=== PATIENT | female | born 1940 | race Caucasian/White ===

== ENCOUNTER 2019-02-05 22:37 | Inpatient (IN) | payer MEDICARE, OTHER ==
[~2019-02-05] VITALS: Ht 154.9 cm; Wt 72.6 kg
[2019-02-05] MEDS ORDERED: HYDROCODON-ACE1 EA10 PO (22:45)
[2019-02-05] MEDS ORDERED: PERCOCET 10-321 EAC1 PO (22:46)
[2019-02-05] MEDS ORDERED: ASPIRIN EC325 M1 PO (22:46)
[2019-02-05] MEDS ORDERED: RESTORIL15 MG PO (22:46)
[2019-02-05] MEDS ORDERED: LANTUS (22:47)
[2019-02-05] MEDS ORDERED: GLUCOPHAGE1000 MG PO (22:47)
[2019-02-05] MEDS ORDERED: LISINOPRIL40 MG PO (22:47)
[2019-02-05] MEDS ORDERED: JANUVIA100 MG PO (22:47)
[2019-02-05] MEDS ORDERED: CYCLOBENZAPRINE10 MG PO (22:47)
[2019-02-05] MEDS ORDERED: TOPROL XL25 MG PO (22:48)
[2019-02-05] MEDS ORDERED: CELEBREX200 MG PO (22:48)
[2019-02-05] MEDS ORDERED: MACROBID100 MG PO (22:48)
[2019-02-05] MEDS ORDERED: ALENDRONAT70 MG/75 M PO (22:49)
[2019-02-05] MEDS ORDERED: VOLTAREN100 GM TOPICAL (22:49)
[2019-02-05] MEDS ORDERED: TIGAN300 MG PO (22:49)
[2019-02-05] MEDS ORDERED: HCTZ25 MG PO (22:50)
--- NOTE | 2019-02-05 23:00 | NUR ---
PT UP TO BATHROOM VIA WHEELCHAIR. PT HAD LARGE BROWN LOOSE BM. PT UNABLE TO URINATE IN CUP FOR SAMPLE
[2019-02-05 23:22] LABS: CALC OSMOLALITY 285 mosm/kg (275-300); CARBON DIOXIDE 19.6 mmol/L (21.0-32.0); CHLORIDE - SERUM 98 mmol/L (98-107); CREATININE - SERUM 1.4 mg/dL (0.6-1.3); GLUCOSE 307 mg/dL (74-106); POTASSIUM - SERUM 4.8 mmol/L (3.5-5.1); SODIUM 132 mmol/L (136-145); UREA NITROGEN 37 mg/dL (7-18); eGFR NON AFRICAN AMERICAN 38 mL/min (90-120)
[2019-02-05 23:24] LABS: HEMATOCRIT 39.9 % (36.0-48.0); MCHC 32.6 g/dL (31.0-37.0); MCV 91.9 fL (80.0-100.0); MEAN PLATELET VOLUME 10.1 fL (7.4-10.4); PLATELET COUNT 399 10x3/uL (130-400); RBC 4.34 10x6/uL (4.00-5.40); RDW 14.6 % (11.5-14.5)
--- NOTE | 2019-02-05 23:30 | NUR ---
STOOL SENT TO LAB
[2019-02-05 23:31] LABS: ALBUMIN 2.8 g/dL (3.4-5.0); ALKALINE PHOSPHATASE 198 U/L (46-116); ALT (SGPT) 23 U/L (10-68); AMYLASE - SERUM 35 U/L (25-115); BILIRUBIN - TOTAL 1.11 mg/dL (0.2-1.3); LIPASE 59 U/L (73-393); PROTEIN - SERUM 5.7 g/dL (6.4-8.2)
[2019-02-05 23:32] LABS: TROPONIN-I < 0.017 ng/mL (0.000-0.060)
[2019-02-05 23:53] LABS: EOSINOPHILS 1 % (0-7); LYMPHOCYTES 5 % (15-50); MONOCYTES 12 % (2-11); NEUTROPHILS 74 % (40-80); PLATELET ESTIMATE NORMAL; PLATELET MORPHOLOGY GIANT PLTS PRESENT
--- NOTE | 2019-02-06 | NUR ---
PT SON BROUGHT PT HOME SCD AND ROM DEVICE BROUGHT FROM HOME TO USE WHILE IN HOSPITAL. PT WEARING SCD AT THIS TIME.
--- NOTE | 2019-02-06 00:30 | NUR ---
ADMIT FROM ER TO 2111 VIA STRETCHER PT TO BED AND SAFTY AND COMFORT SECURED PT HAS HAD RECENT KNEE REPLACEMENT TO RIGHT SIDE
--- NOTE | 2019-02-06 01:13 | NUR ---
ATTEMPTED TO CONTACT ATTENDING PHYSITION ABOUT LACTIC ACID WITH NO CALL BACK PT IS NOT IN DISTRESS
[2019-02-06 01:49] VITALS: BP 106/52; BMI 30.3
[2019-02-06 04:00] VITALS: BP 129/61
--- NOTE | 2019-02-06 07:20 | NUR ---
RECIEVE REPORT. RESTING IN BED WITH EYES CLOSED. HOME SCDs ON. RESPIRATIONS EVEN AND REGULAR. CONTINUE PLAN OF CARE AND SAFETY PRECAUTIONS.
[2019-02-06 08:55] VITALS: BP 120/57
[2019-02-06 11:51] VITALS: BP 116/59
[2019-02-06 12:36] LABS: APPEARANCE CLEAR (CLEAR); BILIRUBIN NEGATIVE (NEGATIVE); COLOR DK YELLOW (YELLOW); GLUCOSE NEGATIVE (NEGATIVE); KETONE NEGATIVE (NEGATIVE); NITRITE NEGATIVE (NEGATIVE); PROTEIN 1+ mg/dL (NEGATIVE); UROBILINOGEN NORMAL (NORMAL)
--- NOTE | 2019-02-06 13:17 | NUR ---
Rehab Note- Acute Inpatient Rehab prescreen order received. The patient has a pending PT Eval, will await & see her physical mobility as she had a recent knee replacement. Will continue to follow at this time. Thank you for thus referral! Siria Mora RN Clinical Liaison, [facility] Rehab
[2019-02-06 16:40] VITALS: BP 109/52
--- NOTE | 2019-02-06 17:17 | NUR ---
ALERT AND ORIENTED X4. SITTING UP IN BED. FAMILY AT BEDSIDE. CONTINUOUS MOTION DEVISE ON RT LEG. SCDs ON. CONTINUE PAIN MANAGEMENT ORDERED. CONTINUE PLAN OF CARE AND SAFETY PRECAUTIONS.
--- NOTE | 2019-02-06 19:15 | NUR ---
AWAKE AND ALERT WITH CPU FROM HOME IN PLACE PT WEARING HER OWN SCD AND PT HAS GOTTEN UP FROY BEEN TOLD PT DENIES NEEDS AT THIS TIME BED IS LOW AND LOCKED CALL LIGHT IS WITH PT SKIN WARM AND DRY AND LCTA I INFORMED PT WE STILL NEED A STOOL SAMPLE
[2019-02-06 20:00] VITALS: BP 105/46
[2019-02-07 00:28] VITALS: BP 101/45
--- NOTE | 2019-02-07 03:30 | NUR ---
I have reviewed this patient and I concur with the Shift Assessment completed by the Licensed Practical Nurse today this shift.
[2019-02-07 04:22] LABS: ANION GAP 9.4 mmol/L (8-16); CALCIUM 8.1 mg/dL (8.5-10.1)
[2019-02-07 04:29] LABS: CREATININE - SERUM 0.8 mg/dL (0.6-1.3); POTASSIUM - SERUM 3.4 mmol/L (3.5-5.1)
[2019-02-07 04:30] VITALS: BP 101/50
--- NOTE | 2019-02-07 07:20 | NUR ---
RECIEVE REPORT. RESTING IN BED WITH EYES CLOSED. RESPIRATIONS EVEN AND REGULAR. NO SIGNS OF DISTRESS. CONTINUE PLAN OF CARE AND SAFETY PRECAUTIONS.
[2019-02-07 07:53] LABS: BASOPHILS 0.1 % (0-2); EOSINOPHILS 2.7 % (0-7); IMMATURE GRANULOCYTES 0.3 % (0-5); LYMPHOCYTES 9.7 % (15-50); MCH 29.4 pg (26.0-34.0); MCHC 32.5 g/dL (31.0-37.0); MCV 90.5 fL (80.0-100.0); MEAN PLATELET VOLUME 9.1 fL (7.4-10.4); MONOCYTES 16.9 % (2-11); NEUTROPHILS 70.3 % (40-80)
[2019-02-07 07:55] LABS: HEMATOCRIT 26.8 % (36.0-48.0); HEMOGLOBIN 8.7 g/dL (12-16); PLATELET COUNT 245 10x3/uL (130-400); RBC 2.96 10x6/uL (4.00-5.40); WBC 7.1 10x3/uL (4.8-10.8)
[2019-02-07 10:27] VITALS: BP 113/55
--- NOTE | 2019-02-07 13:03 | MORECARE ---
CASE MANAGEMENT DISCHARGE SUMMARY PATIENT: VEL SIFUENTES UNIT: [id number] ADM DATE: 02/06/19 AGE: 78 : 38 SEX: F ROOM/BED: D.[facility] AUTHOR: JAYLA,DOC PHYSICIAN: REFERRING PHYSICIAN: ORLANDO REYES MD DATE OF SERVICE: 02/07/19 Discharge Plan Patient Name: VEL SIFUENTES Facility: [facility]:[place] : 1940 Planned Disposition: Outpatient clinics\services (Programs) Anticipated Discharge Date: 02/07/19 Discharge Date: Expected LOS: 1 Initial Reviewer: [email or web address] Initial Review Date: 02/07/2019 Generated: 02/07/19 2:02 pm DCPIA - Discharge Planning Initial Assessment Updated by [email or web address]: Mars Restrepo on 02/07/19 1:02 pm * Is the patient Alert and Oriented? Yes * How many steps to enter\exit or inside your home? RAMP * PCP DR. COTTON * Pharmacy [facility] [address] * Preadmission Environment Home Alone * ADLs Independent * Equipment Hospital Bed Other Walker * Other Equipment CPM AND ICD'S FOR KNEE REPLACEMENT NO MEDICAL EQUIPMENT PROVIDER PREFERENCE * List name and contact numbers for known caregivers / representatives who currently or will assist patient after discharge: PH[place]EN[place] SIFUENTES, SON, * Verbal permission to speak to the caregivers and representatives has been obtained from the patient. N/A * Community resources currently utilized Other * Please name any agencies selected above. OUTPATIENT PHSYICAL THERAPY SET UP WITH [facility] ON [address] TO BEGIN 02-08-19, ARRANGED BY [facility] POST KNEE REPLACEMENT SURGERY. * Additional services required to return to the preadmission environment? No * Can the patient safely return to the preadmission environment? Yes * Has this patient been hospitalized within the prior 30 days at any hospital? No Coverage Notice Reviewer: [id number] - Mars Restrepo Notice Issued Date-Time: 02/07/2019 12:15 Notice Type: IM Discharge Notice Notice Delivered To: Patient Relationship to Patient: Brake Coupler Dinkey Name: Delivery Method: HAND - Hand Delivered Aleta Days: Prior Verbal Notification: Recipient Understood Notice: Yes Recipient Signature: Yes Med Rec Note Co-signed by Attending: Coverage Notice Comment: Patient Name: VEL SIFUENTES Page [phone] at 1303 All edits/amendments must be made on the electronic document DICTATION DATE: 02/07/19 1302 STRATEGIC ANALYST: YAMILE 02/07/19 1302 RPT#: [id number] DC DATE: STATUS: ADM IN [facility] [address] [place] [address] END OF REPORT
--- NOTE | 2019-02-07 13:09 | MORECARE ---
CASE MANAGEMENT DISCHARGE SUMMARY PATIENT: VEL SIFUENTES UNIT: [id number] ADM DATE: 02/06/19 AGE: 78 : 38 SEX: F ROOM/BED: D.9836 AUTHOR: JAYLADOC PHYSICIAN: REFERRING PHYSICIAN: ORLANDO REYES MD DATE OF SERVICE: 02/07/19 Discharge Plan Patient Name: VEL SIFUENTES Facility: [facility]:[place] : 1940 Planned Disposition: Outpatient clinics\services (Programs) Anticipated Discharge Date: 02/07/19 Discharge Date: Expected LOS: 1 Initial Reviewer: [email or web address] Initial Review Date: 02/07/2019 Generated: 02/07/19 2:09 pm Comments DCP- Discharge Planning Updated by [email or web address]: Mars Restrepo on 02/07/19 12:[address] Patient Name: VEL SIFUENTES Admission Status: ER Accout number: [id number] Admission Date: 02-06-2019 : 1940 Admission Diagnosis: Attending: ORLANDO REYES Current LOS: 1 Anticipated DC Date: 02-07-2019 Planned Disposition: Outpatient clinics\services (Programs) Primary Insurance: MEDICARE A & B Discharge Planning Comments: CM RECEIVED ORDER FOR INPATIENT REHAB PRESCREENING. CM MET WITH PT IN ROOM TO DISCUSS DISCHARGE PLANNING AND NEEDS. PT REPORTS LIVING AT HOME INDEPENDENTLY AND ALONE, PT HAS ONE SON THAT LIVES 5 MILES AWAY AND ANOTHER THAT LIVES 15 MILES AWAY. PT REPORTS SHE WILL HAVE FAMILY CHECKING ON HER ALL THROUGH THE DAY AT HOME. PT HAS HOSPIOTAL BED AND WALKER, ICD'S AND CPM POST KNEE REPLACEMENT. PT HAS NO MEDICAL EQUIPMENT PROVIDER PREFERENCE. PT HAS NO OUTSIDE SERVICES ASSISTING IN THE HOME. CM DISCUSSED AVAILABILITY OF HOME HEALTH, REHAB SERVICES AND MEDICAL EQUIPMENT. PT DENIES DISCHARGE NEEDS, REPORTS HER SON WILL PICK HER UP FOR DISCHARGE HOME. PT STATES SHE PLANS TO GO TO HER OUTPATIENT PHSYICAL THERAPY THAT WAS SET UP WITH [facility] ON [address] TO BEGIN 02-08-19, IT WAS ARRANGED BY [facility] POST KNEE REPLACEMENT SURGERY. PT REPORTS FAMILY WILL ASSIST WITH TRANSPORTATION. IMPORTANT MESSAGE FROM MEDICARE PROVIDED AND EXPLAINED. PT DECLINES INPAITENT REHAB SERVICES, REPORTS HAVING OUTPATIENT PHYSICAL THERAPY ARRANGED AND PT WANTS TO GO HOME ALONE WITH FAMILY ASSISTANCE. CM TO CONTINUE TO FOLLOW AND ASSIST IF NEEDED. . Wedger And Gluer: Mars Restrepo DCPIA - Discharge Planning Initial Assessment Updated by [id number]: Mars Restrepo on 02/07/19 1:02 pm * Is the patient Alert and Oriented? Yes * How many steps to enter\exit or inside your home? RAMP * PCP DR. COTTON * Pharmacy [facility] [address] * Preadmission Environment Home Alone * ADLs Independent * Equipment Hospital Bed Other Walker * Other Equipment CPM AND ICD'S FOR KNEE REPLACEMENT NO MEDICAL EQUIPMENT PROVIDER PREFERENCE * List name and contact numbers for known caregivers / representatives who currently or will assist patient after discharge: PHOEINX SIFUENTES, SON, * Verbal permission to speak to the caregivers and representatives has been obtained from the patient. N/A * Community resources currently utilized Other * Please name any agencies selected above. [facility] [address] TO [facility]GIN 02-08-19, ARRANGED BY [facility] POST KNEE REPLACEMENT SURGERY. * Additional services required to return to the preadmission environment? No * Can the patient safely return to the preadmission environment? Yes * Has this patient been hospitalized within the prior 30 days at any hospital? No Coverage Notice Reviewer: [id number] - Mars Restrepo Notice Issued Date-Time: 02/07/2019 12:15 Notice Type: IM Discharge Notice Notice Delivered To: Patient Relationship to Patient: Wellness Program Coordinator Name: Delivery Method: HAND - Hand Delivered Aleta Days: Prior Verbal Notification: Recipient Understood Notice: Yes Recipient Signature: Yes Med Rec Note Co-signed by Attending: Coverage Notice Comment: Last DP export: 02/07/19 12:03 p Patient Name: VEL SIFUENTES Page [phone] at 1309 All edits/amendments must be made on the electronic document DICTATION DATE: 02/07/19 1309 FLAME ANNEALING MACHINE SETTER: YAMILE 02/07/19 1309 RPT#: [id number] DC DATE: STATUS: ADM IN [facility] [address] [place] [address] END OF REPORT
[2019-02-07 13:10] VITALS: BP 109/43
[2019-02-07 17:00] VITALS: BP 108/54
--- NOTE | 2019-02-07 19:01 | NUR ---
RESTING WITH EYES CLOSED BED LOW AND LOCKED PT HAS OWN SCD AND CPU IN PLACE CALL LIGHT IS WITH PT
[2019-02-07 20:00] VITALS: BP 111/51
[2019-02-08] VITALS: BP 113/55
--- NOTE | 2019-02-08 02:09 | NUR ---
I have reviewed this patient and I concur with the Shift Assessment completed by the Licensed Practical Nurse today this shift.
[2019-02-08 04:00] VITALS: BP 108/54
[2019-02-08 06:19] LABS: BASOPHILS 0.3 % (0-2); HEMATOCRIT 26.9 % (36.0-48.0); HEMOGLOBIN 8.6 g/dL (12-16); IMMATURE GRANULOCYTES 0.7 % (0-5); LYMPHOCYTES 11.5 % (15-50); MCH 29.2 pg (26.0-34.0); MCV 91.2 fL (80.0-100.0); MEAN PLATELET VOLUME 9.6 fL (7.4-10.4); MONOCYTES 13.1 % (2-11); NEUTROPHILS 69.4 % (40-80); PLATELET COUNT 276 10x3/uL (130-400); RBC 2.95 10x6/uL (4.00-5.40); RDW 14.8 % (11.5-14.5)
[2019-02-08 06:35] LABS: ANION GAP 12.1 mmol/L (8-16); CALCIUM 8.4 mg/dL (8.5-10.1); CARBON DIOXIDE 24.1 mmol/L (21.0-32.0); CREATININE - SERUM 0.8 mg/dL (0.6-1.3); POTASSIUM - SERUM 3.2 mmol/L (3.5-5.1)
[2019-02-08 06:46] LABS: WBC 9.5 10x3/uL (4.8-10.8)
--- NOTE | 2019-02-08 07:20 | NUR ---
RECIEVE REPORT. ALERT AND ORIENTED X4. SITTING UP IN BED. RESPIRATIONS EVEN AND REGULAR. DENIES ANY NEEDS. CONTINUE PLAN OF CARE AND SAFETY PRECAUTIONS.
[2019-02-08 10:57] VITALS: BP 122/63
[2019-02-08 12:00] VITALS: BP 116/47
[2019-02-08 14:36] LABS: % SATURATION 7 % (15-55); IRON 10 ug/dl (35-150); TOTAL IRON BIND CAPACITY 128 ug/dl (260-445); UNSAT IRON BIND CAPACITY 118 ug/dl (150-375)
[2019-02-08 18:32] VITALS: BP 122/61
--- NOTE | 2019-02-08 19:25 | NUR ---
EASILY AROUSED AT THIS TIME AND NEEDS SEEN TO BED IS LOW AND LOCKED SRX2 PT HAS OWN SCD ON AT THIS TIME CALL LIGHT IS IN REACH
[2019-02-08 20:00] VITALS: BP 121/59
--- NOTE | 2019-02-09 00:06 | NUR ---
PT ADMITS TO LITTLE PAIN BUT REQUEST THE RTR HYDRO ANYWAY
[2019-02-09 00:27] VITALS: BP 158/59
--- NOTE | 2019-02-09 04:19 | NUR ---
I have reviewed this patient and I concur with the Shift Assessment completed by the Licensed Practical Nurse today this shift.
[2019-02-09 04:30] VITALS: BP 115/59
[2019-02-09 05:30] LABS: BASOPHILS 0.7 % (0-2); EOSINOPHILS 3.2 % (0-7); HEMATOCRIT 27.3 % (36.0-48.0); HEMOGLOBIN 8.7 g/dL (12-16); IMMATURE GRANULOCYTES 5.6 % (0-5); LYMPHOCYTES 10.8 % (15-50); MCH 29.2 pg (26.0-34.0); MCHC 31.9 g/dL (31.0-37.0); MCV 91.6 fL (80.0-100.0); MEAN PLATELET VOLUME 8.8 fL (7.4-10.4); MONOCYTES 11.3 % (2-11); NEUTROPHILS 68.4 % (40-80); PLATELET COUNT 297 10x3/uL (130-400); RBC 2.98 10x6/uL (4.00-5.40); RDW 15.1 % (11.5-14.5); WBC 8.6 10x3/uL (4.8-10.8)
[2019-02-09 05:54] LABS: ANION GAP 11.2 mmol/L (8-16); CALCIUM 9.1 mg/dL (8.5-10.1); CARBON DIOXIDE 24.2 mmol/L (21.0-32.0); CREATININE - SERUM 0.8 mg/dL (0.6-1.3); POTASSIUM - SERUM 3.4 mmol/L (3.5-5.1)
[2019-02-09 08:32] VITALS: BP 125/65
--- NOTE | 2019-02-09 09:25 | NUR ---
PT UP WALKING WITH WALKER WITH P.T.
[2019-02-09 11:51] VITALS: BP 128/59
[2019-02-09 11:55] VITALS: Ht 154.9 cm; Wt 72.6 kg
[2019-02-09] MEDS ORDERED: FLAGYL500 MG PO (14:59)
[2019-02-09] MEDS ORDERED: LEVAQUIN750 MG PO (15:00)
--- NOTE | 2019-02-09 15:56 | NUR ---
CALLED DR COTTON OFFICE AT 1551 AND HAD TO LEAVE MESSAGE FOR CALL BACK FOLLOW UP APPT. AWAITING CALL BACK TO FINISH DISCHARGE.
--- NOTE | 2019-02-09 16:06 | NUR ---
CALLED AGAIN TO DR COTTON OFFICE. HAD TO LEAVE ANOTHER VOICEMAIL. AWAITING CALL BACK.
--- NOTE | 2019-02-09 16:08 | NUR ---
YOUNG FROM DR COTTON OFFICE TO CALL BACK WITH APPT. TIME. DISCHARGE PAPERWORK FINISHIED
--- NOTE | 2019-02-09 16:46 | NUR ---
RIGHT FA 20G IV INSERTED ON SECOND ATTEMPT.
--- NOTE | 2019-02-09 17:20 | NUR ---
PT SON CALLED HER ROOM AND PT STATED SHE IS DISCHARGED AND NEEDS A RIDE HOME. PT'S SON STATES HE WOULD COME GET HER.
--- NOTE | 2019-02-09 18:02 | NUR ---
right fa 20g iv dc'd with cath intact. pt has no telemetry. discharge papers given to pt and teaching done. pt has no further questions. discharge papers signed.
--- NOTE | 2019-02-10 08:09 | MORECARE ---
CASE MANAGEMENT DISCHARGE SUMMARY PATIENT: VEL SIFUENTES UNIT: [id number] ADM DATE: 02/06/19 AGE: 78 : 38 SEX: F ROOM/BED: D.8133 AUTHOR: JAYLADOC PHYSICIAN: REFERRING PHYSICIAN: ORLANDO REYES MD DATE OF SERVICE: 02/10/19 Discharge Plan Patient Name: VEL SIFUENTES Facility: [facility]:[place] : 1940 Planned Disposition: Outpatient clinics\services (Programs) Anticipated Discharge Date: 02/09/19 Discharge Date: 02/09/2019 Expected LOS: 3 Initial Reviewer: [email or web address] Initial Review Date: 02/07/2019 Generated: 02/10/19 9:09 am DCP- Discharge Planning Updated by [email or web address]: Mars Restrepo on 02/07/19 12:[address] Patient Name: VEL SIFUENTES Admission Status: ER Accout number: [id number] Admission Date: 02-06-2019 : 1940 Admission Diagnosis: Attending: ORLANDO REYES Current LOS: 1 Anticipated DC Date: 02-07-2019 Planned Disposition: Outpatient clinics\services (Programs) Primary Insurance: MEDICARE A & B Discharge Planning Comments: CM RECEIVED ORDER FOR INPATIENT REHAB PRESCREENING. CM MET WITH PT IN ROOM TO DISCUSS DISCHARGE PLANNING AND NEEDS. PT REPORTS LIVING AT HOME INDEPENDENTLY AND ALONE, PT HAS ONE SON THAT LIVES 5 MILES AWAY AND ANOTHER THAT LIVES 15 MILES AWAY. PT REPORTS SHE WILL HAVE FAMILY CHECKING ON HER ALL THROUGH THE DAY AT HOME. PT HAS HOSPIOTAL BED AND WALKER, ICD'S AND CPM POST KNEE REPLACEMENT. PT HAS NO MEDICAL EQUIPMENT PROVIDER PREFERENCE. PT HAS NO OUTSIDE SERVICES ASSISTING IN THE HOME. CM DISCUSSED AVAILABILITY OF HOME HEALTH, REHAB SERVICES AND MEDICAL EQUIPMENT. PT DENIES DISCHARGE NEEDS, REPORTS HER SON WILL PICK HER UP FOR DISCHARGE HOME. PT STATES SHE PLANS TO GO TO HER OUTPATIENT PHSYICAL THERAPY THAT WAS SET UP WITH [facility] ON [address] TO BEGIN 02-08-19, IT WAS ARRANGED BY [facility] POST KNEE REPLACEMENT SURGERY. PT REPORTS FAMILY WILL ASSIST WITH TRANSPORTATION. IMPORTANT MESSAGE FROM MEDICARE PROVIDED AND EXPLAINED. PT DECLINES INPAITENT REHAB SERVICES, REPORTS HAVING OUTPATIENT PHYSICAL THERAPY ARRANGED AND PT WANTS TO GO HOME ALONE WITH FAMILY ASSISTANCE. CM TO CONTINUE TO FOLLOW AND ASSIST IF NEEDED. . Records Management Analyst: Mars Restrepo DCPIA - Discharge Planning Initial Assessment Updated by [email or web address]: Mars Restrepo on 02/07/19 1:02 pm * Is the patient Alert and Oriented? Yes * How many steps to enter\exit or inside your home? RAMP * PCP DR. COTTON * Pharmacy [facility] [address] * Preadmission Environment Home Alone * ADLs Independent * Equipment Hospital Bed Other Walker * Other Equipment CPM AND ICD'S FOR KNEE REPLACEMENT NO MEDICAL EQUIPMENT PROVIDER PREFERENCE * List name and contact numbers for known caregivers / representatives who currently or will assist patient after discharge: PHOEN[place] SIFUENTES, SON, * Verbal permission to speak to the caregivers and representatives has been obtained from the patient. N/A * Community resources currently utilized Other * Please name any agencies selected above. OUTPATIENT PHSYICAL THERAPY SET UP WITH [facility] ON [address] TO BEGIN 02-08-19, ARRANGED BY [facility] POST KNEE REPLACEMENT SURGERY. * Additional services required to return to the preadmission environment? No * Can the patient safely return to the preadmission environment? Yes * Has this patient been hospitalized within the prior 30 days at any hospital? No Coverage Notice Reviewer: [id number] - Mars Restrepo Notice Issued Date-Time: 02/07/2019 12:15 Notice Type: IM Discharge Notice Notice Delivered To: Patient Relationship to Patient: Electric Gas Appliances Demonstrator Name: Delivery Method: HAND - Hand Delivered Aleta Days: Prior Verbal Notification: Recipient Understood Notice: Yes Recipient Signature: Yes Med Rec Note Co-signed by Attending: Coverage Notice Comment: Last DP export: 02/07/19 12:09 p Patient Name: VEL SIFUENTES Page [phone] at 0809 All edits/amendments must be made on the electronic document DICTATION DATE: 02/10/19808 POULTRY VACCINATOR: YAMILE 02/10/19808 RPT#: [id number] DC DATE:02/09/19 STATUS: DIS IN [facility] [address] [place] [address] END OF REPORT
== END 2019-02-09 18:00 | disposition home or self-care (01) | DRG 872 ==
LOC: D.ER 22:37 → D.M2 23:49 → OBSVTIME 23:49 → D.M2 02-06 01:07
PROVIDERS: Emergency Medicine; Family Medicine; ADMIT Internal Medicine Nephrology; ATTEND Internal Medicine Nephrology
DX: A41.9 Sepsis, unspecified organism (principal); E87.1 Hypo-osmolality and hyponatremia; N17.9 Acute kidney failure, unspecified; J98.11 Atelectasis; K52.9 Noninfective gastroenteritis and colitis, unspecified; I10 Essential (primary) hypertension; E11.9 Type 2 diabetes mellitus without complications; R39.2 Extrarenal uremia; E86.0 Dehydration; E87.6 Hypokalemia; D64.9 Anemia, unspecified